=== PATIENT | female | born 1960 | race Caucasian/White ===

== ENCOUNTER → 2017-10-23 | Outpatient (CLI) | payer OTHER ==
[~2017-10-23] MED LIST: ASPIR 8181 MG PO; CLONIDINE HCL0.1 MG PO; HYDROCHLOROTHIA25 MG PO; LISINOPRIL10 MG PO; MYRBETRIQ25 MG PO; NAPROXEN250 MG PO; SIMVASTATIN40 MG PO; TRICOR48 MG PO; ULTRAM 50MG50 MG PO
--- NOTE | 2017-10-23 10:56 | Diagnostic Imaging Report ---
PROCEDURE: X-RAY CHEST, TWO VIEWS COMPARISON: None. INDICATIONS: ANNUAL PHYSICAL FINDINGS: LUNGS: No consolidations or edema. PLEURA: No effusions or pneumothorax. HEART \T\ MEDIASTINUM: The heart is within normal size-limits. BONES \T\ SOFT TISSUES: No acute findings. CONCLUSION: No acute cardiopulmonary abnormality. Dictated by: Jordan Coleman M.D. on 10/23/2017 at 10:56 Electronically approved by: Jordan Coleman M.D. on 10/23/2017 at 10:56
--- NOTE | 2017-10-23 10:59 | Diagnostic Imaging Report ---
PROCEDURE:L-SPINE COMPLETE COMPARISON:None. INDICATIONS:LOWER BACK PAIN FINDINGS: There are 5 nonrib-bearing lumbar-type vertebral bodies. 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 No acute, displaced fracture or subluxation. No pars interarticularis defects on the oblique radiographs. Mild degenerative disc changes throughout the lower thoracic and lumbar spine. Bilateral facet arthropathy at L4-5 and L5-S1. Sacroiliac joints are maintained. Soft tissues are unremarkable. CONCLUSION: Transitional lumbosacral anatomy with multilevel mild degenerative disc changes and facet arthropathy. Dictated by: Jordan Coleman M.D. on 10/23/2017 at 10:59 Electronically approved by: Jordan Coleman M.D. on 10/23/2017 at 10:59
== END ==
LOC: RAD 09:57
PROVIDERS: ATTEND Internal Medicine
DX: Z00.00 Encounter for general adult medical examination without abnormal findings (principal); M54.5 Low back pain
CPT/HCPCS: 71046; 72110

== ENCOUNTER 2018-02-20 17:43 | Emergency (ER) | payer OTHER ==
[~2018-02-20] VITALS: Ht 152.4 cm; Wt 104.3 kg
[2018-02-20 18:48] LABS: BASOPHILS # (AUTO) 0.1 (0.0-0.1); BASOPHILS % 0.6 % (0.0-1.0); EOSINOPHILS # (AUTO) 0.3 (0.0-0.4); EOSINOPHILS % 2.7 % (0.0-6.0); HEMATOCRIT 40.2 % (34.2-44.1); HEMOGLOBIN 13.7 g/dL (12.0-16.0); LYMPHOCYTES % 23.8 % (18.0-39.1); MEAN CORPUSCULAR HEMOGLOBIN 29.8 pg (28-32); MEAN CORPUSCULAR HGB CONC 34.1 g/dL (31-35); MEAN CORPUSCULAR VOLUME 87.4 fL (81-99); MONOCYTES # (AUTO) 1.6 (0.2-0.8); MONOCYTES % 12.7 % (4.4-11.3); NEUTROPHILS # (AUTO) 7.4 (2.1-6.9); NEUTROPHILS % 59.6 % (38.7-80.0); PLATELET COUNT 326 x10e3/uL (140-360); RED CELL DISTRIBUTION WIDTH 13.2 % (11.7-14.4)
[2018-02-20 19:05] LABS: ALANINE AMINOTRANSFERASE 22 IU/L (0-55); ALBUMIN 3.5 g/dL (3.5-5.0); ALBUMIN/GLOBULIN RATIO 0.8 (0.8-2.0); ALKALINE PHOSPHATASE 93 IU/L (40-150); ANION GAP 15.4 mmol/L (8-16); BLOOD UREA NITROGEN 11 mg/dL (7-26); BUN/CREATININE RATIO 15 (6-25); CALCIUM 9.4 mg/dL (8.4-10.2); CARBON DIOXIDE 26 mmol/L (22-29); CHLORIDE 99 mmol/L (98-107); CREATININE, SERUM 0.75 mg/dL (0.57-1.11); EST GLOMERULAR FILTRATION RATE > 60 ML/MIN (60-); GLUCOSE 158 mg/dL (74-118); POTASSIUM 3.4 mmol/L (3.5-5.1); SODIUM 137 mmol/L (136-145)
[2018-02-20 19:08] LABS: BILIRUBIN,URINE NEGATIVE (NEGATIVE); CLARITY,URINE SL CLOUDY (CLEAR); COLOR,URINE YELLOW (YELLOW); KETONES,URINE NEGATIVE (NEGATIVE); LEUKOCYTE ESTERASE ,URINE NEGATIVE (NEGATIVE); NITRITE,URINE NEGATIVE (NEGATIVE); PROTEIN,URINE DIPSTICK NEGATIVE (NEGATIVE); URINE UROBILINOGEN 1 mg/dL (0.2 - 1)
[2018-02-20 19:19] LABS: AMORPHOUS SEDIMENT,URINE FEW (FEW); BACTERIA,URINE MANY /HPF; EPITHELIAL CELLS,URINE MODERATE /LPF; MUCUS,URINE FEW (RARE)
--- NOTE | 2018-02-20 20:06 | Diagnostic Imaging Report ---
EXAMINATION: CHEST 2 VIEWS INDICATION: \S\cough \[id number] \[id number] COMPARISON: 10/23/2017 FINDINGS: PA and lateral views TUBES and LINES: None. LUNGS: Lungs are moderately inflated. Prominent interstitial markings and peribronchial cuffing. PLEURA: No pleural effusion or pneumothorax. HEART AND MEDIASTINUM: The cardiomediastinal silhouette is unremarkable. BONES AND SOFT TISSUES: No acute osseous lesion. Soft tissues are unremarkable. UPPER ABDOMEN: No free air under the diaphragm. IMPRESSION: Prominent interstitial markings and peribronchial cuffing may reflect mild interstitial edema or atypical infection. Signed by: DR. Darius Cazares MD on 02/20/2018 8:02 PM
[2018-02-20] MEDS ORDERED: ONDANSETRON HCL 4 MG ORAL DISINTEGRATING TAB PO ONE (20:15)
[2018-02-20 20:32] LABS: EOSINOPHILS % (MANUAL) 4 % (0-7); LYMPHOCYTES % (MANUAL) 13 % (19-48); MONOCYTES % (MANUAL) 8 % (3.4-9.0); NEUTROPHILS % (MANUAL) 72 % (40-74); PLATELET ESTIMATE ADEQUATE; PLATELET MORPHOLOGY COMMENT NORMAL; RBC MORPHOLOGY COMMENT NORMAL
[2018-02-20 20:54] LABS: CREATINE KINASE 227 IU/L (29-168)
--- NOTE | 2018-02-20 22:14 | Diagnostic Imaging Report ---
EXAM: CT Chest WITHOUT contrast 02/20/2018 8:35 PM INDICATION: Chest x-ray findings suggestive of interstitial edema or atypical infection. COMPARISON: Chest x-ray on 02/20/2018 TECHNIQUE: Chest was scanned utilizing a multidetector helical scanner from the lung apex through the level of the adrenal glands without administration of IV contrast. Absence of intravenous contrast decreases sensitivity for detection of lymphadenopathy and vascular pathology. Coronal and sagittal reformations were obtained. Routine protocol was performed. IV CONTRAST: None RADIATION DOSE: Total DLP: 599.07 mGy*cm Estimated effective dose: (DLP x 0.014 x size factor) mSv COMPLICATIONS: None FINDINGS: LINES/ TUBES: None. LUNGS AND AIRWAYS: The lungs are unremarkable. Airways are normal. PLEURA: The pleural spaces are clear. HEART AND MEDIASTINUM: The thyroid gland is normal. No mediastinal, hilar or axillary lymphadenopathy. The heart is mildly enlarged.. There is no pericardial effusion. Aorta and coronary arteries are unremarkable. UPPER ABDOMEN: Diffuse hepatic steatosis. BONES: There are degenerative changes in the thoracic spine as well as changes related to DISH. SOFT TISSUES: Unremarkable. IMPRESSION: 1. No evidence of pulmonary edema or atypical infection. 2. Mild enlargement of the heart without the compensation. 3. Diffuse hepatic steatosis. Signed by: Dr. Donald Johnson M.D. on 02/20/2018 10:11 PM
[2018-02-20 22:20] VITALS: BP 109/62
== END 2018-02-20 22:30 | disposition home or self-care (01) ==
LOC: ER 17:43
DX: R05 Cough (principal); J20.9 Acute bronchitis, unspecified; E11.65 Type 2 diabetes mellitus with hyperglycemia; I10 Essential (primary) hypertension
CPT/HCPCS: 36415; 71046; 71250; 80053; 81001; 82550; 82553; 83880; 84484; 85025; 99284

== ENCOUNTER 2018-02-28 17:41 | Emergency (ER) | payer OTHER ==
[~2018-02-28] VITALS: Ht 152.4 cm; Wt 104.3 kg
[2018-02-28 19:04] LABS: BASOPHILS # (AUTO) 0.1 (0.0-0.1); BASOPHILS % 0.7 % (0.0-1.0); EOSINOPHILS # (AUTO) 0.3 (0.0-0.4); EOSINOPHILS % 2.2 % (0.0-6.0); HEMATOCRIT 45.5 % (34.2-44.1); HEMOGLOBIN 15.4 g/dL (12.0-16.0); LYMPHOCYTES # (AUTO) 3.4 (1.0-3.2); LYMPHOCYTES % 29.9 % (18.0-39.1); MEAN CORPUSCULAR HEMOGLOBIN 30.1 pg (28-32); MEAN CORPUSCULAR HGB CONC 33.8 g/dL (31-35); MEAN CORPUSCULAR VOLUME 88.9 fL (81-99); MONOCYTES # (AUTO) 1.2 (0.2-0.8); MONOCYTES % 10.3 % (4.4-11.3); NEUTROPHILS # (AUTO) 6.4 (2.1-6.9); PLATELET COUNT 449 x10e3/uL (140-360); RED BLOOD COUNT 5.12 x10e6/uL (3.6-5.1); RED CELL DISTRIBUTION WIDTH 13.1 % (11.7-14.4)
[2018-02-28 19:06] LABS: CLARITY,URINE CLEAR (CLEAR); COLOR,URINE YELLOW (YELLOW); LEUKOCYTE ESTERASE ,URINE TRACE (NEGATIVE); NITRITE,URINE NEGATIVE (NEGATIVE); PROTEIN,URINE DIPSTICK NEGATIVE (NEGATIVE)
[2018-02-28 19:07] LABS: BILIRUBIN,URINE NEGATIVE (NEGATIVE); KETONES,URINE NEGATIVE (NEGATIVE); PREGNANCY TEST, URINE NEGATIVE (NEGATIVE); URINE UROBILINOGEN 0.2 mg/dL (0.2 - 1)
[2018-02-28 19:15] LABS: ALBUMIN 3.6 g/dL (3.5-5.0); ALBUMIN/GLOBULIN RATIO 0.8 (0.8-2.0); ANION GAP 15.8 mmol/L (8-16); CALCIUM 9.9 mg/dL (8.4-10.2); POTASSIUM 3.8 mmol/L (3.5-5.1)
[2018-02-28 19:21] LABS: BACTERIA,URINE FEW /HPF; EPITHELIAL CELLS,URINE MANY /LPF; MUCUS,URINE FEW (RARE)
[2018-02-28] MEDS ORDERED: TRAMADOL HCL 50 MG TAB PO ONE (20:45)
--- NOTE | 2018-02-28 21:25 | Diagnostic Imaging Report ---
EXAM: CHEST 2 VIEWS, PA and lateral INDICATION: Cough, right-sided pain COMPARISON: None FINDINGS: LINES/TUBES: None LUNGS: No consolidations or edema. PLEURA: No effusions or pneumothorax. HEART AND MEDIASTINUM: Mild cardiac enlargement. BONES AND SOFT TISSUES: No acute findings. IMPRESSION: No acute thoracic abnormality. Signed by: Dr. Ana Laura Marquez M.D. on 02/28/2018 9:21 PM
== END 2018-02-28 23:00 | disposition home or self-care (01) ==
LOC: ER 17:41
DX: R05 Cough (principal); J20.9 Acute bronchitis, unspecified; N30.91 Cystitis, unspecified with hematuria; I10 Essential (primary) hypertension; E11.9 Type 2 diabetes mellitus without complications
CPT/HCPCS: 36415; 71046; 80053; 81001; 81025; 85025; 99284

== ENCOUNTER → 2018-04-21 | Outpatient (CLI) | payer OTHER | LOC: MAMMO 15:27 | PROVIDERS: ATTEND Internal Medicine | DX: I11.9 Hypertensive heart disease without heart failure (principal); I51.7 Cardiomegaly | CPT/HCPCS: 77067; 93880 ==

== ENCOUNTER → 2018-05-05 | Outpatient (CLI) | payer OTHER ==
--- NOTE | 2018-05-05 17:46 | Diagnostic Imaging Report ---
Lumbar Spine Radiographs: 6 views including oblique views HISTORY: Low back pain COMPARISON: None available. DISCUSSION: The osseous structures are partially obscured by stool and bowel gas. Transitional lumbosacral anatomy with sacralization of L5. The alignment of the spine is within normal limits. No displaced fracture or compression deformity is identified. Disc Spaces: Multilevel degenerative changes, most notably mild to moderate of the lower thoracic spine. Facets: Multilevel degenerative changes, most notably severe at L4-5. IMPRESSION: 1. No acute radiographic abnormality. 2. Multilevel degenerative changes, most notably the L4-5 facets. Signed by: Dr. Bishnu Negron D.O., M.M.M. on 05/05/2018 5:43 PM
== END ==
LOC: RAD 16:43
PROVIDERS: ATTEND Internal Medicine
DX: M54.5 Low back pain (principal); G89.29 Other chronic pain
CPT/HCPCS: 72110

== ENCOUNTER 2018-05-13 17:06 | Outpatient (RCR) | payer OTHER | END 2018-06-04 | LOC: PT 17:06 | PROVIDERS: ATTEND Internal Medicine | DX: M51.37 Other intervertebral disc degeneration, lumbosacral region (principal); M54.5 Low back pain; R26.2 Difficulty in walking, not elsewhere classified; M62.81 Muscle weakness (generalized); M53.87 Other specified dorsopathies, lumbosacral region | CPT/HCPCS: 97162; G8978; G8979 ==

== ENCOUNTER 2018-10-30 16:46 | Emergency (ER) | payer OTHER ==
[~2018-10-30] VITALS: Ht 152.4 cm; Wt 104.3 kg
[2018-10-30] MEDS ORDERED: TETANUS/DIPHTHERIA TOX ADULT 0.5 ML SYR IM ONE (18:30)
== END 2018-10-30 18:44 | disposition home or self-care (01) ==
LOC: ER 16:46
DX: S61.217A Laceration without foreign body of left little finger without damage to nail, initial encounter (principal); I10 Essential (primary) hypertension; E11.9 Type 2 diabetes mellitus without complications; E78.5 Hyperlipidemia, unspecified; M54.9 Dorsalgia, unspecified; Z83.3 Family history of diabetes mellitus; Z82.49 Family history of ischemic heart disease and other diseases of the circulatory system; Z91.011 Allergy to milk products; Z88.2 Allergy status to sulfonamides; Z88.8 Allergy status to other drugs, medicaments and biological substances; Z91.048 Other nonmedicinal substance allergy status
CPT/HCPCS: 90714; 99283

== ENCOUNTER → 2024-02-28 | Outpatient (REF) | payer MEDICARE, MEDICAID ==
[~2024-02-28] MED LIST changes: +AZITHROMYCIN250 MG PO; +LORATADINE10 MG PO; +NASACORT16.9 ML
== END ==
LOC: RAD 16:54
PROVIDERS: ATTEND Nurse Practitioner Gerontology
DX: Z01.818 Encounter for other preprocedural examination (principal)
CPT/HCPCS: 71046

== ENCOUNTER 2024-03-17 07:11 | Observation (INO) | payer MEDICARE, MEDICAID ==
[2024-03-16 13:09] LABS: BASOPHILS # (AUTO) 0.2 (0.0-0.1); BASOPHILS % 1.9 % (0.0-1.0); EOSINOPHILS # (AUTO) 0.6 (0.0-0.4); EOSINOPHILS % 7.1 % (0.0-6.0); HEMATOCRIT 43.7 % (34.2-44.1); HEMOGLOBIN 14.5 g/dL (12.0-16.0); LYMPHOCYTES # (AUTO) 2.7 (1.0-3.2); LYMPHOCYTES % 34.5 % (18.0-39.1); MEAN CORPUSCULAR HEMOGLOBIN 29.7 pg (28-32); MEAN CORPUSCULAR HGB CONC 33.2 g/dL (31-35); MEAN CORPUSCULAR VOLUME 89.4 fL (81-99); MONOCYTES # (AUTO) 0.9 (0.2-0.8); MONOCYTES % 11.1 % (4.4-11.3); NEUTROPHILS # (AUTO) 3.5 (2.1-6.9); NEUTROPHILS % 45.1 % (38.7-80.0); PLATELET COUNT 364 x10e3/uL (140-360); RED BLOOD COUNT 4.89 x10e6/uL (3.6-5.1); RED CELL DISTRIBUTION WIDTH 12.3 % (11.7-14.4); WHITE BLOOD COUNT 7.72 x10e3/uL (4.8-10.8)
[2024-03-16 13:29] LABS: ANION GAP 13.9 mmol/L (8-16); CALCIUM 9.6 mg/dL (8.4-10.2); CREATININE, SERUM 0.81 mg/dL (0.57-1.11); POTASSIUM 3.9 mmol/L (3.5-5.1)
[~2024-03-17 07:11] MED LIST changes: +CELEBREX200 MG PO; +GEMTESA75 MG PO; +GLIPIZIDE5 MG PO; +JANUVIA50 MG PO; +RYBELSUS14 MG PO; +VITAMIN D31250 MCG PO
[2024-03-17] MEDS: CEFAZOLIN SODIUM 2 GM ONE (09:13)
[2024-03-17] MEDS: LACTATED RINGER'S 1,000 ML ONE (09:14)
[2024-03-17] MEDS: CELECOXIB 200 MG CAP ONE (09:16)
[2024-03-17] MEDS: GABAPENTIN 300 MG CAP ONE (09:16)
[2024-03-17] MEDS: DEXAMETHASONE SOD PHOS 10 MG/1 ML VIAL ONE (09:17)
[2024-03-17] MEDS ORDERED: Vancomycin IV 500 MG ONE (10:06)
[2024-03-17] MEDS ORDERED: SODIUM CHLORIDE 0.9% 500ML 500 ML ONE (10:06)
[2024-03-17] MEDS ORDERED: TRANEXAMIC ACID 20 ML ONE (10:06)
[2024-03-17] MEDS ORDERED: SODIUM CHLORIDE 0.9% 1000ML 1,000 ML IV SCH (11:45)
[2024-03-17] MEDS ORDERED: HYDROCODONE/APAP 5MG-325MG TAB PO PRN (11:45)
[2024-03-17] MEDS ORDERED: HYDROCODONE/APAP 7.5MG-325MG 1 EA TAB PO PRN (11:45)
[2024-03-17] MEDS ORDERED: DIPHENHYDRAMINE HCL INJ 50 MG/ML VIAL IV PRN (11:45)
[2024-03-17] MEDS ORDERED: DOCUSATE SODIUM 100 MG CAP PO PRN (11:45)
[2024-03-17] MEDS ORDERED: ONDANSETRON HCL INJ 2MG/ML 2ML 2 MG/ML VIAL IV PRN (11:45)
[2024-03-17] MEDS ORDERED: MIDAZOLAM HCL 2 MG/2 ML VIAL ONE (11:59)
[2024-03-17] MEDS ORDERED: FENTANYL CITRATE/PF 100MCG/2 ML INJ ONE ×2 (11:59→12:04)
[2024-03-17] MEDS: HYDROMORPHONE 1MG/1ML INJ ONE (12:23)
[2024-03-17] MEDS ORDERED: ONDANSETRON HCL INJ 2MG/ML 2ML 2 MG/ML VIAL ONE (12:24)
[2024-03-17] MEDS ORDERED: NEOSTIGMINE 1 MG/ML 10ML VIAL ONE (12:24)
[2024-03-17] MEDS ORDERED: KETOROLAC TROMETHAMINE 30 MG/ML VIAL ONE (12:24)
[2024-03-17] MEDS ORDERED: PROPOFOL IV EMULSION 10 MG/ML 20 ML VIAL ONE (12:24)
[2024-03-17] MEDS ORDERED: GLYCOPYRROLATE INJ 0.2 MG/ML VIAL ONE (12:24)
[2024-03-17] MEDS ORDERED: LABETALOL HCL 5 MG/ML 20ML VIAL ONE (12:24)
[2024-03-17] MEDS ORDERED: ROCURONIUM BROMIDE 10 MG/ML 5ML VIAL IV ONE (12:24)
[2024-03-17] MEDS ORDERED: SEVOFLURANE INHAL SOLN 250 ML PEN BTL ONE (12:24)
[2024-03-17] MEDS ORDERED: DEXAMETHASONE SOD PHOS INJ 4 MG/ML SDV ONE (12:24)
[2024-03-17] MEDS ORDERED: LIDOCAINE HCL 2% LOCAL INJ 5 ML SDV VIAL INJ ONE (12:24)
[2024-03-17 14:30] VITALS: BP 144/82; PULSE 81; RESP 17; O2SAT 94
[2024-03-17] MEDS ORDERED: ASPIRIN 325 MG TAB PO SCH (17:00)
[2024-03-17] MEDS ORDERED: CELECOXIB 100 MG CAP PO SCH (17:00)
[2024-03-18] MEDS ORDERED: ACETAMINOPHEN 1000 MG/100 ML IV PRN (11:45)
== END 2024-03-17 14:48 | disposition home health service (06) ==
LOC: OR 07:11 → PACU V 11:39
PROVIDERS: ADMIT Specialist; ATTEND Specialist
DX: M17.12 Unilateral primary osteoarthritis, left knee (principal); R53.81 Other malaise; E11.9 Type 2 diabetes mellitus without complications; Z79.84 Long term (current) use of oral hypoglycemic drugs; I51.9 Heart disease, unspecified; E78.00 Pure hypercholesterolemia, unspecified; I49.1 Atrial premature depolarization; Z01.810 Encounter for preprocedural cardiovascular examination; Z01.812 Encounter for preprocedural laboratory examination; Z79.899 Other long term (current) drug therapy; Z88.0 Allergy status to penicillin; Z88.2 Allergy status to sulfonamides; Z88.6 Allergy status to analgesic agent; Z91.011 Allergy to milk products; Z88.8 Allergy status to other drugs, medicaments and biological substances; Z91.048 Other nonmedicinal substance allergy status
CPT/HCPCS: 27447; 36415 ×2; 73560; 80048; 82948; 85025; 86850; 86900; 93005; 97116; 97161; 97530; C1713 ×2; C1776 ×3; G0378; J0171; J1100 ×2; J1170; J1885; J2001; J2250; J2405; J2704; J2710; J2795; J3010; J3370; J3490; J7040; J7121

== ENCOUNTER 2024-04-02 17:07 | Emergency (ER) | payer MEDICARE ==
[~2024-04-02] VITALS: Ht 147.3 cm; Wt 93.9 kg
[2024-04-02 17:25] VITALS: TEMP 98.5
[2024-04-02 19:30] VITALS: PULSE 72; RESP 16
[2024-04-02] MEDS ORDERED: HYDROCODON-ACE1 EA12 PO (19:37)
[2024-04-02 20:01] VITALS: BP 130/73; PULSE 72; RESP 16; TEMP 98.5; O2SAT 98
== END 2024-04-02 19:50 | disposition home or self-care (01) ==
LOC: ER 17:13
DX: M79.662 Pain in left lower leg (principal); M25.572 Pain in left ankle and joints of left foot; I10 Essential (primary) hypertension; E11.9 Type 2 diabetes mellitus without complications; E78.5 Hyperlipidemia, unspecified; M54.9 Dorsalgia, unspecified; G89.29 Other chronic pain; Z96.652 Presence of left artificial knee joint
CPT/HCPCS: 93971; 99282

== ENCOUNTER 2024-05-01 10:42 | Outpatient (RCR) | payer MEDICARE ==
[~2024-05-01 10:42] MED LIST changes: +HYDROCODON-ACE1 EA12 PO
== END 2024-05-04 ==
LOC: PT 10:42
PROVIDERS: ATTEND Physician Assistant
DX: Z47.1 Aftercare following joint replacement surgery (principal); Z96.652 Presence of left artificial knee joint

== ENCOUNTER 2024-06-03 11:00 | Outpatient (RCR) | payer MEDICARE | END 2024-06-04 | LOC: PT 11:00 | PROVIDERS: ATTEND Physician Assistant | DX: Z47.1 Aftercare following joint replacement surgery (principal); Z96.652 Presence of left artificial knee joint ==

== ENCOUNTER 2024-06-08 10:31 | Outpatient (RCR) | payer MEDICARE | END 2024-07-04 | LOC: PT 10:31 | PROVIDERS: ATTEND Physician Assistant | DX: Z47.1 Aftercare following joint replacement surgery (principal); Z96.652 Presence of left artificial knee joint ==